=== PATIENT | male | born 1940 ===

== ENCOUNTER 2019-08-29 13:39 | Emergency (ER) | payer MEDICARE ==
[2019-08-29 15:22] VITALS: BP 109/46
--- NOTE | 2019-08-29 15:28 | UC ---
Lower Extremity/Ankle HPI - HPI Summary HPI Summary: Day 3 of right knee and left great toe pain. Today pain makes it difficult for pt. to walk. Hx. of gout. - History of Current Complaint Chief Complaint: UCLowerExtremity Stated Complaint: LEFT FOOT,RIGHT KNEE Time Seen by Provider: 08/29/19 15:24 Hx Obtained From: Patient Onset/Duration: Sudden Onset, Lasting Days Severity Initially: Severe Severity Currently: Severe Pain Intensity: 8 Aggravating Factor(s): Standing, Ambulation Alleviating Factor(s): Nothing Able to Bear Weight: No - Allergies/Home Medications Allergies/Adverse Reactions: Allergies Allergy/AdvReac Type Severity Reaction Status Date / Time No Known Allergies Allergy Verified 08/29/19 15:11 Home Medications: Home Medications Aspirin [Aspir-Low] 81 mg PO DAILY 08/29/19 [History Confirmed 08/29/19] Clopidogrel TAB* [Plavix TAB*] 75 mg PO DAILY 08/29/19 [History Confirmed ] Metoprolol Tartrate [Lopressor] 25 mg PO DAILY 08/29/19 [History Confirmed 08/29] PMH/Surg Hx/FS Hx/Imm Hx Previously Healthy: Yes Endocrine History: Other - Surgical History Surgical History: None - Family History Known Family History: Positive: Hypertension - Social History Alcohol Use: Rare Substance Use Type: None Smoking Status (MU): Current Every Day Smoker Type: Cigarettes Amount Used/How Often: 1/2 ppd Length of Time of Smoking/Using Tobacco: 59 Have You Smoked in the Last Year: Yes Review of Systems All Other Systems Reviewed And Are Negative: Yes Musculoskeletal: Positive: Arthralgia, Decreased ROM, Edema Physical Exam Triage Information Reviewed: Yes Appearance: Well-Appearing, Well-Nourished, Pain Distress Vital Signs: Initial Vital Signs Temp 99 F 08/29/19 15:14 Pulse 81 08/29/19 15:14 Resp 22 08/29/19 15:14 BP 109/46 08/29/19 15:14 Pulse Ox 95 08/29/19 15:14 Vital Signs Reviewed: Yes Eye Exam: Normal ENT Exam: Normal Dental Exam: Normal Neck exam: Normal Respiratory Exam: Normal Cardiovascular Exam: Normal Abdominal Exam: Normal Musculoskeletal: Positive: Strength Limited @, ROM Limited @ - unable to bear weight due to pain, Edema @ - of the right knee and the left ankle Neurological Exam: Normal Psychological Exam: Normal Skin Exam: Normal Lower Extremity Course/Dx - Course Course Of Treatment: hx obtained, exam performed ,meds reviewed, - Differential Dx/Diagnosis Differential Diagnosis/HQI/PQRI: Cellulitis, Gout, Infection, Sprain, Strain Provider Diagnosis: Gout Discharge ED - Sign-Out/Discharge Documenting (check all that apply): Patient Departure All imaging exams completed and their final reports reviewed: No Studies - Discharge Plan Condition: Stable Disposition: HOME Prescriptions: Indomethacin CAP* [Indocin CAP*] 50 mg PO TID #24 cap Patient Education Materials: Gout (ED) Referrals: Jessica Jorge [Primary Care Provider] - Additional Instructions: 1. take the medication as prescribed. 2. Stop the plavix and aspirin while taking the indomethacine 3. FOllow up with your primary for follow up - Billing Disposition and Condition Condition: STABLE Disposition: Home - Attestation Statements Provider Attestation: Per institutional requirements, I have reviewed the chart, however, I was not consulted specifically or made aware of this patient by the midlevel provider. I did not personally evaluate, interact with , or disposition this patient.
== END 2019-08-29 15:47 | disposition home or self-care (01) ==
LOC: UCCORT 13:39
DX: M10.9 Gout, unspecified (principal); F17.210 Nicotine dependence, cigarettes, uncomplicated; Z79.82 Long term (current) use of aspirin
CPT/HCPCS: 99212; G0463